=== PATIENT | female | born 1960 | race Caucasian/White ===

== ENCOUNTER 2018-08-16 08:02 | Inpatient (IN) ==
--- NOTE | 2018-08-16 08:50 | PROVIDER DOCUMENTATION ---
HPI-General Adult - General Chief Complaint: Return/Recheck Stated Complaint: CONFUSED Time Seen by Provider: 08/16/18 08:21 Source: patient Unable to obtain history due to:: altered Allergies/Adverse Reactions: Patient Allergies Allergy/AdvReac Type Severity Reaction Status Date / Time benzonatate Allergy Unknown Verified 08/16/18 09:14 [From Yamilex Polo] shellfish derived Allergy ABDOMINAL Verified 08/16/18 09:14 PAIN Sulfa (Sulfonamide Allergy HIVES Verified 08/16/18 09:14 Antibiotics) Home Medications: Home Medication List Medication Instructions Recorded Confirmed Last Taken Type Naproxen [Naprosyn] 250 mg PO BID PRN #14 tab 08/13/18 Unknown Rx Cyclobenzaprine [Flexeril] 10 mg PO TID #20 tab 08/15/18 Unknown Rx - History of Present Illness -Gen Adult Nature of Presenting Problems: 57yof present to ER with c/o AMS onset this am. Pt was seen here the 2 previous days for back pain. Pt received toradol/decadron injection yesterday. Friend reports she did not get the flexeril filled. Only medical hx known is "liver issues" with hx of past alcoholism. Pt lives in a homeless custodial. Pt only responds to all questions with yes. Slow and difficult to follow commands. Pt very jaundice in color. Review of Systems - Adult - REVIEW OF SYSTEMS - ADULT ROS:: unobtainable per condition Constitutional: reports: no symptoms reported Eyes: reports: no symptoms reported Ears, Nose, Mouth & Throat: reports: no symptoms reported Cardiovascular: reports: no symptoms reported Respiratory: reports: no symptoms reported Gastrointestinal: reports: no symptoms reported Genitourinary: reports: no symptoms reported Musculoskeletal: reports: no symptoms reported Integumentary: reports: no symptoms reported Neurological: reports: see HPI, other (AMS). denies: dizziness/vertigo, numbness, paresthesia, slurred speech Psychiatric: reports: no symptoms reported Endocrine: reports: see HPI, change in skin pigment Hematologic/Lymphatic: reports: no symptoms reported Allergic/Immunologic: reports: no symptoms reported All Other Systems: Reviewed and Negative Past History - Adult - PAST MEDICAL HISTORY-ADULT Review of Records: reports: Old Records Reviewed, Nursing Assessment Review, Medications Reviewed, Social history reviewed & non-contributory. Major Childhood Illnesses: reports: denies history Cardiovascular: reports: denies history Respiratory: reports: denies history Gastrointestinal: reports: liver disease Obstetrical/Gynecological: reports: denies history Genitourinary: reports: denies history Musculoskeletal: reports: denies history Neurological: reports: denies history Psychiatric: reports: anxiety Endocrine/Immune: reports: denies history Other Conditions: reports: denies history - PRIOR SURGERIES/PROCEDURES Surgical/Procedure History: reports: BTL - IMMUNIZATION STATUS Childhood Immunizations: See Nurse Assessment Flu Vaccine: See Nurse Assessment - FAMILY HISTORY Family History: reviewed, not pertinent - SOCIAL HISTORY Substance Use: none presently/history of abuse, alcohol Living Situation: homeless (custodial) Physical Exam-General - PHYSICAL EXAM-ADULT Initial Vital Signs Reviewed: Yes - CONSTITUTIONAL General Appearance: mild distress, slow to respond - EYES Eyes: other (sclera jaundice pupils 4+ sluggish bilaterally) - HEAD, EARS, NOSE, MOUTH & THROAT HENMT: normocephalic/atraumatic, moist mucous membranes, normal ENT inspection - NECK Neck: full range of motion, supple, normal inspection. negative: C-spine tenderness, trachial deviation, tender lateral, tender midline - RESPIRATORY Respiratory: lungs clear, normal breath sounds, no respiratory distress, no accessory muscle use - CARDIOVASCULAR Cardiovascular: regular rate, rhythm, no edema - GASTROINTESTINAL (ABDOMEN) Abdominal Exam: normal bowel sounds, non tender, soft. negative: distended, guarding, rigid, rebound - GENITOURINARY Female Genitalia/Pelvic Exam: deferred Rectal Exam: normal exam, normal rectal tone Hemoccult Exam: heme negative stool - LYMPHATIC Lymphatic: no adenopathy - MUSCULOSKELETAL Back Exam: normal inspection, no CVA tenderness, no vertebral tenderness Extremity: normal range of motion - SKIN Integumentary: warm/dry, jaundice - NEUROLOGIC Neurologic: grossly normal, no motor/sensory deficits - PSYCHIATRIC Psych/Mental Status: disoriented x 3 Progress - PLAN OF CARE/RESULTS Progress/Plan/Lab Results: Vital Signs - 8 hr 08/16/18 08:07 Temperature 97.9 F Pulse Rate 91 H Respiratory Rate 18 Blood Pressure 126/61 O2 Sat by Pulse Oximetry 100 Orders Category Date Time Status CT HEAD W/O CONTRAST [CT] Stat Exams 08/16/18 08:17 Ordered ALCOHOL BLOOD Stat Lab 08/16/18 08:16 Uncollected AMMONIA [CHEM] Stat Lab 08/16/18 08:27 Uncollected CBC WITH ELECTRONIC DIFF [HEME] Stat Lab 08/16/18 08:16 Ordered COMPREHENSIVE METABOLIC PANEL [CHEM] Stat Lab 08/16/18 08:16 Uncollected PT [PROTIME WITH INR] [COAG] Stat Lab 08/16/18 08:39 Uncollected PTT [COAG] Stat Lab 08/16/18 08:[address] W/POSS RFLX CULT [URINALYSIS] Stat Lab 08/16/18 08:16 Uncollected URINE DRUG SCREEN PL Stat Lab 08/16/18 08:16 Uncollected EKG [EKG] Stat Ther 08/16/18 08:38 Ordered Result Diagrams: 08/16/18 08:41 08/16/18 08:41 - REASSESSMENT Reassessment #1 Time Reassessed: 09:12 (discussed pt with Dr Anne, advises to order hemoccult) Reassessment #2 Time Reassessed: 09:20 (At bedside with Dr Anne to reassess pt. Pt still slow to respond and follow commands. Hemoccult obtained supervised by BERNADINE Rosa. Pt tolerated well.) Reassessment #3 Time Reassessed: 10:29 (Pt continues to be lethargic. Pt/friend updated about results and possible admission) - EKG 1 Time of EKG reading by physician:: 09:23 EKG Read and Signed by:: Taurus Anne EKG Interpretation (*Must complete 3 of following elements*): Abnormal Rate: 95 Rhythm: Accelerated Junctional Rhythm Comments: Regular supraventricular rhythm - CT/MRI 1 CT Study: Head Impression: See EMR Report (There are mild atrophic changes. There is no evidence of intracranial hemorrhage, mass effect, midline shift, or hydrocephalus. There is no evidence of infarct, although acute infarcts may not be immediately visible. There are small basal ganglia calcifications compatible with chronic process. There is no evidence of skull fracture. There is paranasal sinus disease noted at the bilateral maxillary sinuses, with the left maxillary sinus being completely opacified. IMPRESSION: No visible acute intracranial abnormality. No hemorrhage or mass effect. There is paranasal sinus disease noted at the bilateral maxillary sinuses. This exam was performed using automated exposure control, adjustment of mA or kV according to patient size, and/or use of iterative reconstruction technique. Electronically signed by Von Stevenson 08/16/2018 9:04 AM) - ULTRASOUND (By Radiology) 1 US Study: Abdomen Impression: Abnormal (The liver appears somewhat echogenic diffusely suggesting fatty infiltration. The liver contours appear slightly lobulated, which can be seen with cirrhosis. There is no focal liver lesion identified. The blood flow direction in the portal vein is ambiguous on Doppler images. The spleen is not visualized. There is a small amount ascites. The gallbladder is contracted. The gallbladder lópez appear thickened up to 6 mm, but this may be exaggerated by the contracted state. Gallbladder wall thickening also can be seen with cirrhosis. There are no gallstones or discrete gallbladder wall edema identified. The common bile duct is normal caliber at 4 mm. Visualized portions of the pancreas are unremarkable. There are no abnormalities of the right kidney identified. The left kidney is not visualized. Visualized portions of abdominal aorta and IVC appear normal caliber. IMPRESSION: Apparent fatty infiltration of liver and/or cirrhosis. No evidence of focal liver lesion. The direction of blood flow in the portal vein is ambiguous. The spleen is not visualized. There is a small amount ascites. Contracted gallbladder, with apparent thickened lópez. No evidence of gallstones. Normal caliber common bile duct at 4 mm. Electronically signed by [facility] [employer] 08/16/2018 10:18 AM) - CONSULTS/PCP/HOSPITALIST Notification #1 *Consult/PCP/Hospitalist*: Dr Tse, hospitalist Time Discussed: 10:35 (possible admission) Consult Disposition: Admit Departure - Departure Date of Disposition Decision: 08/16/18 Time of Disposition Decision: 10:18 DIAGNOSIS: Encephalopathy acute UTI (urinary tract infection) Qualifiers: Urinary tract infection type: site unspecified Hematuria presence: without hematuria Qualified Code(s): N39.0 - Urinary tract infection, site not specified Altered mental status Qualifiers: Altered mental status type: unspecified Qualified Code(s): R41.82 - Altered mental status, unspecified Cirrhosis Qualifiers: Hepatic cirrhosis type: unspecified hepatic cirrhosis Ascites presence: unspecified Qualified Code(s): K74.60 - Unspecified cirrhosis of liver Disposition: ADMITTED INPATIENT 09 Certified Medical Emergency: Emergent Condition: Fair Referrals and Follow-Ups: None,PCP [Primary Care Provider] - - Critical Care Note This patient required my direct & personal management of CC.: No Attestation - Physician/ BONNIE Attestation Patient care was provided by Advanced Practice Provider:: Yes Advanced Practice Provider:: Gale Hamm Advanced Practice Provider documentation review:: The Mid-level provider documentation, treatment plan and medical decision making was reviewed by the physician who agrees with all treatment and medical decision making by the MLP. The physician spent face to face time with patient:: Yes Advanced Practice Provider documentation review:: Supervising physician onsite and consulted in the evaluation and care of this patient. The physician did have a face to face encounter with the patient.
[2018-08-16 09:00] LABS: BASO# 0.01 X1000 (0.0-0.2); BASO% 0.1 % (0.0-0.8); HEMATOCRIT 19.5 % (37.0-47.0); IMM GRAN# 0.02 X1000 (0.0-0.04); IMM GRAN% 0.2 % (0.0-0.5); LYMPH# 0.57 X1000 (1.2-3.4); MCV 106.6 FL (81-99); MONO# 0.76 X1000 (0.11-0.59); MONO% 9.3 % (1.7-9.3); MPV 11.4 FL (7.4-10.4); NEUT# 6.77 X1000 (1.4-6.5); NEUT% 83.4 % (42.2-75.2); PLT 50 X1000 (130-400); RBC 1.83 XMIL (4.2-5.4); RDW 14.9 % (11.5-14.5); WBC 8.13 X1000 (4.8-10.8)
[2018-08-16 09:05] LABS: INR 1.93
[2018-08-16 09:06] LABS: PTT 38.3 Seconds (22.3-41.8)
--- NOTE | 2018-08-16 09:07 | Diag Imaging Result Doc PS360 ---
EXAM: CT HEAD W/O CONTRAST - 08/16/2018 HISTORY: CONFUSION TECHNIQUE: CT head without contrast COMPARISON: None. FINDINGS: There are mild atrophic changes. There is no evidence of intracranial hemorrhage, mass effect, midline shift, or hydrocephalus. There is no evidence of infarct, although acute infarcts may not be immediately visible. There are small basal ganglia calcifications compatible with chronic process. There is no evidence of skull fracture. There is paranasal sinus disease noted at the bilateral maxillary sinuses, with the left maxillary sinus being completely opacified. IMPRESSION: No visible acute intracranial abnormality. No hemorrhage or mass effect. There is paranasal sinus disease noted at the bilateral maxillary sinuses. This exam was performed using automated exposure control, adjustment of mA or kV according to patient size, and/or use of iterative reconstruction technique. Electronically signed by Von Stevenson 08/16/2018 9:04 AM
[2018-08-16 09:12] LABS: AGAP 11; ALBUMIN 2.7 g/dL (3.5-5.0); ALKALINE PHOSPHATASE 259 U/L (32-104); BUN 17 mg/dL (8-22); CALCIUM 8.9 mg/dL (8.8-10.2); CHLORIDE 113 mmol/L (98-107); COSMO 296; CREATININE 0.7 mg/dL (0.5-0.9); ESTIMATED GFR > 60; GLUCOSE 198 mg/dL (70-104); GOT 35 U/L (10-30); GPT 13 U/L (10-36); POTASSIUM 4.2 mmol/L (3.5-5.1); SODIUM 145 mmol/L (136-145); TCO2 21 mmol/L (25-35); TOTAL PROTEIN 6.4 g/dL (6.3-8.3)
[2018-08-16] MEDS ORDERED: LACTULOSE PO ONE (09:14)
[2018-08-16 09:42] LABS: MCH < 50.0 PG (27-31); MCHC < 50.0 g/dL (33-37)
[2018-08-16 09:43] LABS: LYMPHS 10 % (21-51); MONO 6 % (1-9); SEGS 84 % (42-75)
[2018-08-16 09:54] LABS: OCCULT BLOOD 1 NEGATIVE (NEGATIVE)
[2018-08-16 10:08] LABS: BILIRUBIN URINE 2+ (NEGATIVE); BLOOD URINE 2+ (NEGATIVE); CLARITY VERY CLOUDY (CLEAR); COLOR YELLOW; KETONE URINE 1+(Small) mg/dL (NEGATIVE); LEUKOCYTES URINE 1+ (NEGATIVE); NITRITE URINE NEGATIVE (NEGATIVE); PH URINE 6.5; PROTEIN URINE 1+(30 mg/dL) mg/dL (NEGATIVE); UROBILINOGEN URINE 8 mg/dL
[2018-08-16 10:09] LABS: URINE BACTERIA 3+ /HFP; URINE RBC 20-40 /HPF (<10); URINE WBC 20-40 /HPF (<10)
[2018-08-16 10:10] LABS: UR AMPHETAMINES QUAL NONE DETECTED (NONE DETECT); UR BARBITUATES QUAL NONE DETECTED (NONE DETECT); UR BENZODIAZEPIN QUAL NONE DETECTED (NONE DETECT); UR CANNABINOIDS QUAL NONE DETECTED (NONE DETECT); UR COCAINE QUAL NONE DETECTED (NONE DETECT); UR METHADONE QUAL NONE DETECTED (NONE DETECT); UR METHAMPHETAMINE QUAL NONE DETECTED (NONE DETECT); UR OPIATES QUAL NONE DETECTED (NONE DETECT); UR OXYCODONE QUAL NONE DETECTED (NONE DETECT); UR PCP QUAL NONE DETECTED (NONE DETECT); UR PROPOXYPHENE QUAL NONE DETECTED (NONE DETECT); UR TCA QUAL NONE DETECTED (NONE DETECT); URINE SOURCE CLEAN CATCH
[2018-08-16] MEDS ORDERED: ROCEPHIN 1 GM in NS 50 ML IV ONE (10:11)
--- NOTE | 2018-08-16 10:20 | Diag Imaging Result Doc PS360 ---
EXAM: US GB < RUQ (LIMITED) - 08/16/2018 HISTORY: AMS, liver failure TECHNIQUE: Ultrasound abdomen. According to the technologist, the patient was uncooperative during the exam and the exam had to be stopped early. COMPARISON: None. FINDINGS: The liver appears somewhat echogenic diffusely suggesting fatty infiltration. The liver contours appear slightly lobulated, which can be seen with cirrhosis. There is no focal liver lesion identified. The blood flow direction in the portal vein is ambiguous on Doppler images. The spleen is not visualized. There is a small amount ascites. The gallbladder is contracted. The gallbladder lópez appear thickened up to 6 mm, but this may be exaggerated by the contracted state. Gallbladder wall thickening also can be seen with cirrhosis. There are no gallstones or discrete gallbladder wall edema identified. The common bile duct is normal caliber at 4 mm. Visualized portions of the pancreas are unremarkable. There are no abnormalities of the right kidney identified. The left kidney is not visualized. Visualized portions of abdominal aorta and IVC appear normal caliber. IMPRESSION: Apparent fatty infiltration of liver and/or cirrhosis. No evidence of focal liver lesion. The direction of blood flow in the portal vein is ambiguous. The spleen is not visualized. There is a small amount ascites. Contracted gallbladder, with apparent thickened lópez. No evidence of gallstones. Normal caliber common bile duct at 4 mm. Electronically signed by Von Stevenson 08/16/2018 10:18 AM
--- NOTE | 2018-08-16 10:40 | EKG Report ---
Test Performed on : 08/16/2018 09:23:58 AM Test Reason : ams Blood Pressure : / mmHG Vent. Rate : 095 BPM Atrial Rate : 087 BPM P-R Int : 000 ms QRS Dur : 094 ms QT Int : 374 ms P-R-T Axes : 000 019 027 degrees QTc Int : 469 ms Accelerated Junctional rhythm. Nonspecific T wave abnormality Prolonged QT Abnormal ECG No previous ECGs available Unconfirmed Result
[2018-08-16] MEDS: NS 1,000 ML IV SCH (13:32)
[2018-08-16] MEDS: ZOSYN 3.375 GM in NS 50 ML IV SCH ×2 (14:32→21:20)
--- NOTE | 2018-08-16 14:38 | Diag Imaging Result Doc PS360 ---
EXAM: CT ABD/PELVIS W/IV CONT ONLY - 08/16/2018 HISTORY: Transamanasemia; Jaundice. TECHNIQUE: CT abdomen/pelvis with intravenous contrast. No oral contrast administered per request of the referring provider. COMPARISON: None. FINDINGS: There are small bilateral pleural effusions. There is mild atelectasis at the inferior left lingula. The liver has lobulated contours suspicious for cirrhosis. There is no focal liver lesion identified. The main portal vein is small in caliber. There is no discrete thrombus identified in the main portal vein there is substantial splenomegaly. There are large venous varicosities at the left upper quadrant abdomen. There are small venous varicosities along the distal esophagus. These findings suggest cirrhosis with portal hypertension. There is a small amount ascites. The gallbladder lópez appear mildly thickened. This is nonspecific and can be seen with cirrhosis and ascites. There are no calcified gallstones identified. There is no discrete pancreatic mass or inflammation identified. There is no adrenal mass seen. The bilateral kidneys enhance homogeneously. There is no hydronephrosis. There are small to borderline retroperitoneal lymph nodes. There is apparent medication residue in the duodenum. There is possibly some wall thickening along the stomach and proximal duodenum which may relate to gastritis/duodenitis. There is no extraluminal gas collection identified. There is no evidence of bowel obstruction. The appendix has air in the lumen and shows no evidence of inflammation. There is no free air or abscess identified. Images of pelvis otherwise show a 3.6 cm right ovarian cyst. There are venous varicosities in the pelvis which are most prominent along the margins of the uterus. There is a Rouse catheter in the urinary bladder. IMPRESSION: Evidence of cirrhosis with portal hypertension. Associated splenomegaly and large venous varicosities at left upper quadrant. Small venous varicosities along distal esophagus. Small amount of ascites. No evidence of focal liver lesion. Mild thickening of the gallbladder lópez. No calcified gallstones. Possible gastritis and duodenitis. No bowel obstruction. No free air or abscess. 3.6 cm right ovarian cyst. Venous varicosities in pelvis, most prominent along the margins of the uterus. This exam was performed using automated exposure control, adjustment of mA or kV according to patient size, and/or use of iterative reconstruction technique. Electronically signed by Von Stevenson 08/16/2018 2:36 PM
--- NOTE | 2018-08-16 15:02 | HISTORY AND PHYSICAL ---
ADDENDUM: I saw the patient [id number] and agree with the assessment and plan of nurse practitioner Quiana Alicea. This is a 57-year-old lady who has been admitted to the hospital with altered mental status and jaundice, along with history of hepatitis in the past. She also has history of alcohol abuse in the past and has urinary tract infection along with macrocytic anemia. Furthermore, she is having elevated ammonia levels. We are going to admit the patient at the hospital here and keep her NPO. I am going to start her on Zosyn intravenously and obtain a CT scan of the abdomen and pelvis for further evaluation. We will repeat labs including CBC and CMP in the morning tomorrow. I am also going to obtain B12, folate, hepatitis, and GGT levels in the morning tomorrow. Further recommendations will be given as per hospital course. cc: Aftab Tse MD
[2018-08-16] MEDS: SODIUM CHLORIDE 0.9% INJ SCH (18:40)
[2018-08-16] MEDS: PROTONIX IV SCH (18:40)
--- NOTE | 2018-08-16 19:06 | HISTORY AND PHYSICAL ---
CHIEF COMPLAINT: Altered mental status. 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 She was seen at the emergency room at [facility] on the two previous days for back pain, and received Toradol along with Decadron injections yesterday. She was prescribed naproxen and cyclobenzaprine for her back pain, but her friend reported that she did not get the Flexeril filled. She is known to have some liver issues with past history of alcoholism, and lives in a homeless alf, but there are no other past medical problems reported. She is a poor historian, and does not answers questions well. PAST MEDICAL HISTORY: Unknown except for alcoholic liver disease. FAMILY HISTORY: Noncontributory. SOCIAL HISTORY: She has a history of alcohol abuse in the past, and she is currently homeless and lives in a alf. ALLERGIES: Patient reports to be allergic to benzonatate, sulfur drugs, and shellfish. CURRENT HOME MEDICATIONS: 1. Naproxen 250 mg orally twice daily as needed. 2. Cyclobenzaprine 10 mg orally 3 times a day as needed for muscle spasm. REVIEW OF SYSTEMS: A full review of system could not be obtained since patient is not able to properly communicate. PHYSICAL EXAMINATION: VITAL SIGNS: Temperature 98.1 degrees, pulse 88 per minute, respiratory rate 16 per minute, blood pressure 93/47, and pulse oximetry 100% on room air. GENERAL: The patient is lethargic and sleepy. She does not communicate well. She does not appear to be in any acute distress otherwise. HEENT: No acute findings noted. NECK: Supple without any thyromegaly. LYMPHATICS: No lymphadenopathy noted in the neck region. CHEST: Chest wall is nontender. CARDIOVASCULAR: First and second heart sounds are audible without any murmurs or gallops. RESPIRATORY SYSTEM: No respiratory distress noted. Bilateral lung air entry is moderately decreased with no rales or rhonchi present on auscultation. GASTROINTESTINAL: Abdomen is soft and nondistended. Normal bowel sounds are present. No focal deficits are present. PSYCHIATRIC: The patient is not able to communicate properly. Proper psychiatric examination could not be performed. GENITOURINARY: Deferred. INTEGUMENTARY: Skin is warm and dry without any rash. DIAGNOSTIC DATA: CBC shows hemoglobin of 11 and hematocrit 19.5 with MCV of 106.6. Rest of the CBC is nondiagnostic. PT is slightly elevated at 23 and INR is 1.93 with PTT of 38.3. Chemistry showed glucose levels of 198, total bilirubin 6.9, AST 35, ALT 13, and ammonia levels of 103. Rest of the chemistry is nondiagnostic. Urine drug screen was found to be negative, and urinalysis found urine to be cloudy and nitrite negative. It had 1+ ketones, 1+ protein and 2+ blood with 20 to 40 white blood cells per high-power field, and 20 to 40 red blood cells per high- power field. CT scan of the head without contrast done at the emergency room did not show any visible acute intracranial abnormality including any hemorrhage or mass effect. Abdominal ultrasound done at the emergency room showed fatty infiltration of the liver with possibility of cirrhosis. No evidence of focal liver lesion was seen. Spleen was not visualized, and there was small amount of ascites present. IMPRESSION: 1. Altered mental status with urinary tract infection and elevated bilirubin of 6.9 with possibility of obstructive jaundice. 2. History of alcoholic liver disease with alcoholic cirrhosis. 3. Mild macrocytic anemia. PLAN: The patient will be kept NPO and given IV fluids. We will initiate her on Zosyn intravenously, and give her lactulose 30 mL p.o. twice daily. We will also initiate her on Protonix 40 mg IV 24 hours, and obtain CT scan of the abdomen and pelvis for further evaluation. We will also obtain hepatitis panel, CBC, CMP, and GGT, B12 and folate levels in the morning tomorrow. Further recommendations will be given as per hospital course. cc: Aftab Tse MD
[2018-08-16] MEDS: LACTULOSE PO SCH (21:20)
[2018-08-17] MEDS: ZOSYN 3.375 GM in NS 50 ML IV SCH ×4 (02:22→21:37)
[2018-08-17] MEDS: NS 1,000 ML IV SCH ×2 (02:22→13:20)
[2018-08-17] MEDS: LACTULOSE PO SCH ×2 (09:10→21:38)
[2018-08-17] MEDS: VITAMIN B-1 PO SCH (10:06)
--- NOTE | 2018-08-17 11:48 | PROGRESS NOTE ---
DATE: 08/17/2018 SUBJECTIVE: Patient feels better this morning, and has been able to communicate properly. She denies having any acute complaints. She did refuse blood draw early this morning, but now appears to agree for blood testing done. OBJECTIVE: Vital Signs: Temperature 98.5 degrees, pulse 62 per minute, respiratory rate 16 per minute, blood pressure 100/40, and pulse oximetry 100% on room air. General: Patient is alert and oriented x3. She does not appear to be in any acute distress at this time. Cardiovascular: First and second heart sounds are audible without any murmurs or gallops. Respiratory: Bilateral lung air entry is good without any rales or rhonchi. Gastrointestinal: Abdomen is soft and nontender on palpation. Normal bowel sounds are present. DIAGNOSTIC DATA: No new labs have been done this morning. She has agreed for blood to be drawn for testing including CBC, CMP, GGT, B12/folate levels, and hepatitis profile. IMPRESSION: 1. Altered mental status secondary to metabolic encephalopathy and hepatic encephalopathy. 2. Urinary tract infection secondary to gram-negative rods. 3. Cirrhosis secondary to alcoholic liver disease. 4. Macrocytic anemia. PLAN: We are going to continue to provide her Zosyn intravenously along with IV Protonix and oral thiamine. We will keep giving IV fluids, and continue her on lactulose 30 mL twice daily orally as well. The patient today has been able to communicate with me, and tells me that she has been on the transplant list for her liver cirrhosis in [place]. She has not been drinking any alcohol according to her, and did not have any other medical issues. We will be able to discharge her home once her overall condition continues to be improving. cc: Aftab Tse MD
[2018-08-17 13:18] LABS: AGAP 12; ALBUMIN 2.2 g/dL (3.5-5.0); ALKALINE PHOSPHATASE 138 U/L (32-104); BUN 22 mg/dL (8-22); CALCIUM 8.5 mg/dL (8.8-10.2); CHLORIDE 114 mmol/L (98-107); COSMO 298; CREATININE 0.7 mg/dL (0.5-0.9); ESTIMATED GFR > 60; GGT 18 U/L (7-32); GLUCOSE 144 mg/dL (70-104); GOT 33 U/L (10-30); GPT 13 U/L (10-36); MAGNESIUM 1.9 mg/dL (1.5-2.7); SODIUM 147 mmol/L (136-145); TCO2 21 mmol/L (25-35); TOTAL PROTEIN 5.5 g/dL (6.3-8.3)
[2018-08-17] MEDS: SYNTHROID PO SCH (13:29)
[2018-08-17] MEDS: CORGARD PO SCH (13:30)
[2018-08-17] MEDS: SODIUM CHLORIDE 0.9% INJ SCH (17:41)
[2018-08-17] MEDS: PROTONIX IV SCH (17:41)
[2018-08-18] MEDS: NS 1,000 ML IV SCH ×2 (00:36→06:24)
[2018-08-18] MEDS: ZOSYN 3.375 GM in NS 50 ML IV SCH ×2 (03:06→08:44)
[2018-08-18 08:18] LABS: BASO# 0.03 X1000 (0.0-0.2); BASO% 0.8 % (0.0-0.8); EOS# 0.11 X1000 (0.0-0.7); EOS% 2.8 % (0.0-10.0); HEMATOCRIT 29.1 % (37.0-47.0); HEMOGLOBIN 9.6 g/dL (12.0-16.0); IMM GRAN# 0.05 X1000 (0.0-0.04); IMM GRAN% 1.3 % (0.0-0.5); LYMPH# 1.27 X1000 (1.2-3.4); LYMPH% 32.6 % (20.5-51.1); MCH 35.3 PG (27-31); MONO% 12.8 % (1.7-9.3); MPV 11.1 FL (7.4-10.4); NEUT# 1.94 X1000 (1.4-6.5); NEUT% 49.7 % (42.2-75.2); PLT 52 X1000 (130-400); RBC 2.72 XMIL (4.2-5.4); RDW 14.7 % (11.5-14.5)
[2018-08-18 08:25] LABS: BANDS 2 % (0-1); EOS 6 % (1-10); LYMPHS 20 % (21-51); MONO 6 % (1-9); SEGS 64 % (42-75)
[2018-08-18 08:26] LABS: ANISOCYTOSIS OCCASIONAL; HYPOCHROM OCCASIONAL; POIKILOCYTOSIS OCCASIONAL; POLYCHROM OCCASIONAL
[2018-08-18 08:28] LABS: BURR CELLS OCCASIONAL; OVALOCYTES OCCASIONAL
[2018-08-18] MEDS: CORGARD PO SCH (08:45)
[2018-08-18] MEDS: LACTULOSE PO SCH (08:55)
[2018-08-18] MEDS: VITAMIN B-1 PO SCH (08:55)
[2018-08-18] MEDS: SYNTHROID PO SCH (08:55)
--- NOTE | 2018-08-18 11:54 | DISCHARGE SUMMARY ---
ADMISSION DATE: 08/16/2018 DISCHARGE DATE: 08/18/2018 DISCHARGE DIAGNOSES: 1. Altered mental status secondary to hepatic encephalopathy. 2. Urinary tract infection secondary to Enterobacter aerogenes. 3. Alcoholic cirrhosis. 4. Macrocytic anemia. HOSPITAL COURSE: This is a 57-year-old female who presented to the emergency department with altered mental status of a few hours' duration. She was seen at [facility] Emergency Department the previous 2 days for back pain. She was only taking naproxen and cyclobenzaprine for her back pain. She was admitted to the hospital and was given lactulose since her pneumonia was elevated. She received IV fluids and was also given IV Protonix. Because of her condition we obtained a CT scan of the abdomen and pelvis that confirmed liver cirrhosis. The patient's condition gradually improved and therefore she is going to be discharged home today. DISCHARGE MEDICATIONS: 1. Lactulose 30 mL orally twice daily. 2. Levothyroxine 50 mcg orally once daily. 3. Protonix 40 mg orally once daily. 4. Nadolol 20 mg orally once daily. 5. Thiamine 100 mg orally once daily. FOLLOW UP: She is advised to follow with her PCP in 1 to 2 weeks. cc: Aftab Tse MD
[2018-08-18 12:27] VITALS: BP 120/47
[2018-08-20 09:57] LABS: HEPATITIS PROFILE ACUTE SEE COMMENTS
== END 2018-08-18 13:33 | disposition home or self-care (01) | DRG 433 ==
LOC: P.ED 08:02 → P.MEDSURG 08:03
PROVIDERS: ATTEND Internal Medicine
CPT/HCPCS: 70450; 74177; 76705; 80053; 80074; 80104; 80301; 80305; 80307; 80320; 81001; 82055; 82140; 82270; 82607; 82746; 82977; 83735; 85025; 85610; 85730; 87077; 87088; 87186; 93005; 96365; 99285; A9270; C9113; G0431; G0434; G0477; G0480; G6040; J0696; J2543; J7030; Q9967; S0164